=== PATIENT | male | born 1990 | race Caucasian/White ===

== ENCOUNTER 2020-03-16 18:56 | Emergency (ER) | payer MEDICAID ==
[~2020-03-16] VITALS: Ht 198.1 cm; Wt 86.3 kg
[2020-03-16 18:57] VITALS: BP 119/82
[2020-03-16] MEDS ORDERED: naproxen 500mg tablet PO ONE (19:50)
[2020-03-16] MEDS ORDERED: LIDOcaine 5% patch TP SCH (19:50)
[2020-03-16] MEDS ORDERED: NAPR-56 PO (19:50)
== END 2020-03-16 20:06 | disposition home or self-care (01) ==
LOC: ER 18:56
DX: S80.02XA Contusion of left knee, initial encounter (principal); S80.12XA Contusion of left lower leg, initial encounter; Z79.899 Other long term (current) drug therapy; W19.XXXA Unspecified fall, initial encounter; Y93.89 Activity, other specified; Y92.89 Other specified places as the place of occurrence of the external cause; Y99.8 Other external cause status
CPT/HCPCS: 73564; 99284

== ENCOUNTER 2020-12-31 03:04 | Emergency (ER) | payer MEDICAID ==
[~2020-12-31] VITALS: Ht 198.1 cm; Wt 84.0 kg
[2020-12-31] MEDS ORDERED: LIDOcaine 1% W/epiNEPHrine 1:200,000 10ml vial IJ ONE (05:10)
[2020-12-31] MEDS ORDERED: bacitracin 15gm ointment TP ONE (05:25)
[2020-12-31] MEDS ORDERED: TETanus/Pertussis (Acell)/Diphther VAC/PF (Tdap-Adult) 0.5ml syringe IMVAC ONE (05:25)
[2020-12-31] MEDS ORDERED: ONDA4TAB6 PO (05:40)
[2020-12-31] MEDS ORDERED: SULF1TAB49 PO (05:40)
[2020-12-31] MEDS ORDERED: HYDROcodone/acetaminophen 10/325mg tab PO ONE (05:40)
[2020-12-31] MEDS ORDERED: HYDR-3972 PO (05:40)
[2020-12-31] MEDS ORDERED: CEPH-585 PO (05:40)
[2020-12-31] MEDS ORDERED: sulfamethoxazole/trimethoprim DS (800/160mg) tablet PO ONE (05:40)
[2020-12-31] MEDS ORDERED: ondansetron 4mg rapidly disintigrating tab PO ONE (05:40)
[2020-12-31] MEDS ORDERED: cephalexin 250mg capsule PO ONE (05:40)
[2020-12-31 06:08] VITALS: BP 133/90
== END 2020-12-31 06:11 | disposition home or self-care (01) ==
LOC: ER 03:05
DX: S60.351A Superficial foreign body of right thumb, initial encounter (principal); S60.111A Contusion of right thumb with damage to nail, initial encounter; L03.011 Cellulitis of right finger; Z79.899 Other long term (current) drug therapy; W45.8XXA Other foreign body or object entering through skin, initial encounter; Y93.89 Activity, other specified; Y92.89 Other specified places as the place of occurrence of the external cause; Y99.8 Other external cause status
CPT/HCPCS: 64450; 87070; 87077; 87186; 90471; 90715; 99284

== ENCOUNTER 2021-07-19 08:35 | Emergency (ER) | payer MEDICAID ==
[~2021-07-19] VITALS: Ht 198.1 cm; Wt 84.1 kg
[~2021-07-19 08:35] MED LIST: CEPH-585 PO; ONDA4TAB6 PO
[2021-07-19 08:41] VITALS: BP 123/85
[2021-07-19] MEDS ORDERED: SULF1TAB49 PO (09:27)
[2021-07-19] MEDS ORDERED: CEPH-585 PO (09:27)
== END 2021-07-19 09:37 | disposition home or self-care (01) ==
LOC: ER 08:35
DX: L02.415 Cutaneous abscess of right lower limb (principal)
CPT/HCPCS: 99283

== ENCOUNTER 2021-11-26 20:53 | Emergency (ER) | payer MEDICAID, OTHER ==
[~2021-11-26] VITALS: Ht 198.1 cm; Wt 74.0 kg
[2021-11-26 21:11] VITALS: BP 112/67
--- NOTE | 2021-11-26 23:34 | NUR ---
SECOND TIME CALLING. NOT IN LOBBY
--- NOTE | 2021-11-27 00:45 | NUR ---
not in lobby
== END 2021-11-27 00:51 | disposition left against medical advice (07) ==
LOC: ER 20:55
DX: N50.811 Right testicular pain (principal); Z53.21 Procedure and treatment not carried out due to patient leaving prior to being seen by health care provider